=== PATIENT | male | born 1990 | race Two or more races ===

== ENCOUNTER 2023-02-23 19:11 | Emergency (ER) | payer OTHER ==
[2023-02-23 19:24] VITALS: BP 134/86; PULSE 91; RESP 18; TEMP 99.3; BMI 24.3
[2023-02-23] MEDS ORDERED: ACETAMINOPHEN 1000 MG/100 ML BAG IVPB ONE (20:08)
[2023-02-23] MEDS ORDERED: ACETAMINOPHEN INJECTION 100 ML IVPB ONE (20:19)
[2023-02-23 20:37] LABS: BASO % 0.8 % (0-2.0); EOS % 0.5 % (0-4.5); HEMATOCRIT 43.4 % (35.4-49); HEMOGLOBIN 14.5 GM/dL (11.7-16.9); LYMPH % 16.9 % (8-40); MCH 27.8 pg (25.7-33.7); MCHC 33.3 g/dl (32.0-35.9); MEAN CELL VOLUME 83.3 fl (80-96); MEAN PLT VOLUME 7.5 fl (7.5-11.1); MONO % 12.6 % (3.8-10.2); NEUT % 69.2 % (42.8-82.8); PLATELET COUNT 287 10^3/uL (134-434); RBC 5.21 M/mm3 (4.00-5.60); RDW 14.1 % (11.9-15.9); WHITE BLOOD COUNT 9.7 K/mm3 (4.0-10.0)
[2023-02-23 21:38] LABS: POTASSIUM 5.3 mmol/L (3.5-5.1)
[2023-02-23 21:40] LABS: CALCIUM 9.4 mg/dL (8.5-10.1)
[2023-02-23 21:41] LABS: ALBUMIN 4.2 g/dl (3.4-5.0); BLOOD UREA NITROGEN 9.1 mg/dL (7-18)
[2023-02-23 21:44] LABS: CREATININE 1.1 mg/dL (0.55-1.3)
[2023-02-23 21:45] LABS: BILIRUBIN,TOTAL 0.8 mg/dL (0.2-1)
[2023-02-23 21:46] LABS: TOT PROT 8.4 g/dl (6.4-8.2)
== END 2023-02-23 23:46 | disposition home or self-care (01) ==
LOC: JER 19:11
PROC: 3E033NZ Introduction of Analgesics, Hypnotics, Sedatives into Peripheral Vein, Percutaneous Approach (ICD-10-PCS; principal; 2023-02-23)
DX: R07.89 Other chest pain (principal); R07.0 Pain in throat; R68.83 Chills (without fever); R06.02 Shortness of breath; Z20.822 Contact with and (suspected) exposure to COVID-19
CPT/HCPCS: 0241U-QW; 36415; 71046-TC-FY; 80053; 84484; 85025; 93005; 93010; 99285-25